=== PATIENT | male | born 1980 | race Caucasian/White ===

== ENCOUNTER 2024-05-31 17:05 | Emergency (ER) | payer BC ==
[~2024-05-31] VITALS: Ht 185.4 cm; Wt 125.0 kg
[2024-05-31 17:15] VITALS: TEMP 98.9; O2SAT 99
[2024-05-31 17:26] VITALS: O2SAT 97
[2024-05-31] MEDS ORDERED: LIDO700A15 TP (18:31)
[2024-05-31 18:53] VITALS: BP 137/82; PULSE 112; RESP 16
[2024-05-31] MEDS: LIDOCAINE 5% PATCH TOP SCH (18:53)
[2024-05-31] MEDS: KETOROLAC 30MG/ML VIAL IM ONE (18:53)
== END 2024-05-31 18:59 | disposition home or self-care (01) ==
LOC: ER 17:05
DX: S13.4XXA Sprain of ligaments of cervical spine, initial encounter (principal); E11.9 Type 2 diabetes mellitus without complications; Z90.49 Acquired absence of other specified parts of digestive tract; Z88.5 Allergy status to narcotic agent; V43.52XA Car driver injured in collision with other type car in traffic accident, initial encounter; Y93.89 Activity, other specified; Y92.410 Unspecified street and highway as the place of occurrence of the external cause; Y99.8 Other external cause status
CPT/HCPCS: 99283; 96372; J1885